=== PATIENT | female | born 1965 | race Caucasian/White ===

== ENCOUNTER 2020-12-25 20:31 | Outpatient (REF) | payer MEDICARE, SELFPAY ==
[2020-12-28 16:47] LABS: COVID-19 RT-PCR Result Not Detected ((See Note))
== END 2020-12-25 20:32 | disposition home or self-care (01) ==
LOC: LBN 20:31
PROVIDERS: PCP Family Medicine; Visit Provider Nurse Practitioner Adult Health
DX: Z20.822 Contact with and (suspected) exposure to COVID-19 (principal)
CPT/HCPCS: U0003